=== PATIENT | female | born 1945 | race Caucasian/White ===

== ENCOUNTER → 2016-11-08 | Outpatient (CLI) | payer OTHER, MEDICARE ==
[~2016-11-08] MED LIST: APIX5TAB PO; DIGO125T6 PO; FURO-93 PO; GABA300C10 PO; GABA600T2 PO; HYDR-3240 PO; INSU100C5 SQ-INSULIN; INSU100V13 SQ; INSU500I SQ; INSU500I SQ-INSULIN; L.AC1CAP6 PO; LISI5TAB7 PO; LORA-446 PO; LORA0.5T PO; LORA1TAB PO; MELA3TAB62 PO; METH10TA6 PO; METO25TA35 PO; METO50TA82 PO; MOME17SP NAS; MONT10TA9 PO; OMEP-110 PO; POTA10TA11 PO; PROM25SU34 PO; PROM25TA10 PO; SIMV40TA3 PO; SOTA80TA18 PO; TRAM50TA2 PO; ZOLP10TA PO
== END | disposition home or self-care (01) ==
LOC: CFH 12:31
PROVIDERS: ATTEND Internal Medicine
DX: R06.02 Shortness of breath (principal)
CPT/HCPCS: 71250

== ENCOUNTER → 2017-02-22 | Outpatient (CLI) | payer OTHER, MEDICARE | LOC: CFH 11:14 | PROVIDERS: ATTEND Otolaryngology | DX: H90.3 Sensorineural hearing loss, bilateral (principal) | CPT/HCPCS: 70480 ==

== ENCOUNTER → 2020-06-28 | Outpatient (CLI) | payer MEDICARE ==
[~2020-06-28] MED LIST changes: -DIGO125T6 PO; +DIGO125T81 PO; -GABA600T2 PO; +GABA600T7 PO; +HYDR-2214 PO; -HYDR-3240 PO; +MONT10TA17 PO; -MONT10TA9 PO; +SIMV40TA20 PO; -SIMV40TA3 PO
== END | disposition home or self-care (01) ==
LOC: CVU 14:36
PROVIDERS: ATTEND Registered Nurse
DX: I08.1 Rheumatic disorders of both mitral and tricuspid valves (principal); I11.9 Hypertensive heart disease without heart failure; G47.33 Obstructive sleep apnea (adult) (pediatric); J45.30 Mild persistent asthma, uncomplicated; I48.91 Unspecified atrial fibrillation; E11.9 Type 2 diabetes mellitus without complications; Z87.891 Personal history of nicotine dependence; Z68.35 Body mass index [BMI] 35.0-35.9, adult; Z95.0 Presence of cardiac pacemaker
CPT/HCPCS: 93306

== ENCOUNTER → 2020-10-18 | Outpatient (CLI) | payer MEDICARE ==
[2020-10-18 12:56] LABS: ALANINE AMINOTRANSFERASE 57 U/L (12-78); ALBUMIN 3.7 g/dL (3.4-5.0); ANION GAP 7 mmol/L (5-15); CALCIUM 8.4 mg/dL (8.5-10.1); CHLORIDE 97 mmol/L (98-107)
[2020-10-18 13:04] LABS: ALKALINE PHOSPHATASE 104 U/L (45-117); BILIRUBIN,TOTAL 0.4 mg/dL (0.2-1.0); CHOL/HDL RATIO 4.1; CHOLESTEROL, TOTAL 141 mg/dL (140-239); CREATININE 0.91 mg/dL (0.55-1.02); FREE T4 (FREE THYROXINE) 1.18 ng/dL (0.76-1.46); HDL CHOL % 24 % (28-40); HDL CHOLESTEROL (DIRECT) 34 mg/dL (40-60); LDL CHOLESTEROL,CALCULATED 69 mg/dL (54-169); TOTAL PROTEIN 7.5 g/dL (6.4-8.2); TRIGLYCERIDES 189 mg/dL (50-200); VLDL CHOLESTEROL 38 mg/dL (0-25)
[2020-10-18 14:51] LABS: MICROSCOPIC AUTO
== END | disposition home or self-care (01) ==
LOC: LAB 12:14
PROVIDERS: ATTEND Physician Assistant Medical
DX: R30.0 Dysuria (principal); E11.8 Type 2 diabetes mellitus with unspecified complications
CPT/HCPCS: 36415; 80053; 80061; 81001; 82043; 82570; 83036; 84439; 84443

== ENCOUNTER 2020-11-05 06:11 | Day surgery (SDC) | payer MEDICARE ==
[~2020-11-05] VITALS: Ht 172.7 cm; Wt 99.3 kg
[2020-11-05 06:50] VITALS: BP 125/73
[2020-11-05] MEDS ORDERED: OXYMETAZOLINE NASAL SPRAY 0.05%,30ML ONE (06:57)
[2020-11-05] MEDS ORDERED: BACITRACIN OINT 500U/GM, 15 GM ONE (06:57)
[2020-11-05] MEDS ORDERED: LIDOCAINE/PF 1%-EPI 1:200K, 30 ML ONE (06:57)
[2020-11-05] MEDS ORDERED: CHLORHEXIDINE 15 ML UDC PO ONE (07:00)
[2020-11-05] MEDS ORDERED: LACTATED RINGERS 1,000 ML IV SCH (07:00)
[2020-11-05] MEDS ORDERED: PROPOFOL 10 MG/ML, 20ML ONE (07:40)
[2020-11-05] MEDS ORDERED: FENTANYL PF 250 MCG/5ML ONE (07:40)
[2020-11-05] MEDS ORDERED: ROCURONIUM 10MG/ML,5ML ONE (07:40)
[2020-11-05] MEDS ORDERED: SUCCINYLCHOLINE 20 MG/ML, 10ML ONE (07:40)
[2020-11-05 07:46] LABS: ALBUMIN 3.4 g/dL (3.4-5.0); ANION GAP 7 mmol/L (5-15); CALCIUM 9.1 mg/dL (8.5-10.1); CHLORIDE 104 mmol/L (98-107)
[2020-11-05 07:52] LABS: ALANINE AMINOTRANSFERASE 44 U/L (12-78); ALKALINE PHOSPHATASE 87 U/L (45-117); BILIRUBIN,TOTAL 0.4 mg/dL (0.2-1.0); CREATININE 1.19 mg/dL (0.55-1.02)
[2020-11-05] MEDS ORDERED: ONDANSETRON 2MG/ML, 2ML ONE (08:29)
[2020-11-05] MEDS ORDERED: FENTANYL PF 100 MCG/2ML ONE (08:53)
[2020-11-05] MEDS: FENTANYL PF 100 MCG/2ML IV PRN ×3 (08:55→09:33)
[2020-11-05] MEDS ORDERED: MIDAZOLAM 1 MG/ML, 2ML IV PRN (09:00)
[2020-11-05] MEDS ORDERED: DIPHENHYDRAMINE 50 MG/ML, 1ML IVPush PRN ×2 (09:00)
[2020-11-05] MEDS ORDERED: DIAZEPAM 5 MG/ML, 2ML IVPush PRN (09:00)
[2020-11-05] MEDS ORDERED: OXYcodone 5 MG/5 ML ORAL.SOL UDC PO PRN (09:00)
[2020-11-05] MEDS ORDERED: ONDANSETRON 2MG/ML, 2ML IVPush PRN (09:00)
[2020-11-05] MEDS ORDERED: EPHEDRINE 50 MG/ML, 1ML IVPush PRN (09:00)
[2020-11-05] MEDS ORDERED: LORazepam 2 MG/ML, 1ML IVPush PRN (09:00)
[2020-11-05] MEDS ORDERED: HYDROmorphone 1 MG/ML, 1ML INJ IVPush PRN (09:00)
[2020-11-05] MEDS ORDERED: LABETALOL 5MG/ML, 20ML IV PRN (09:00)
[2020-11-05] MEDS ORDERED: hydrALAzine 20 MG/ML, 1ML IV PRN (09:00)
[2020-11-05] MEDS ORDERED: PROMETHAZINE 25 MG/ML, 1ML IVPush PRN (09:00)
[2020-11-05] MEDS ORDERED: ALBUTEROL SULFATE 2.5 MG/3 ML NPPB PRN (09:00)
[2020-11-05] MEDS ORDERED: MEPERIDINE/PF 25MG/0.5ML IVPush PRN (09:00)
[2020-11-05] MEDS ORDERED: ACETAMINOPHEN 325 MG TABLET PO PRN (09:00)
[2020-11-05] MEDS ORDERED: PROMETHAZINE 12.5 MG SUPP PR PRN (09:00)
[2020-11-05] MEDS ORDERED: ACETAMINOPHEN 650 MG/20.3 ML UDC ONE (09:08)
[2020-11-05] MEDS ORDERED: OXYcodone 5 MG/5 ML ORAL.SOL UDC ONE (09:21)
== END 2020-11-05 10:55 | disposition home or self-care (01) ==
LOC: OUT 06:11
PROVIDERS: ATTEND Otolaryngology
DX: J34.2 Deviated nasal septum (principal); J34.3 Hypertrophy of nasal turbinates; I10 Essential (primary) hypertension; E78.5 Hyperlipidemia, unspecified; I48.91 Unspecified atrial fibrillation; E11.9 Type 2 diabetes mellitus without complications; G47.33 Obstructive sleep apnea (adult) (pediatric); J45.909 Unspecified asthma, uncomplicated; E66.9 Obesity, unspecified; Z79.899 Other long term (current) drug therapy; Z88.8 Allergy status to other drugs, medicaments and biological substances
CPT/HCPCS: 30140; 30520; 80053; 82962; 93005; J0330; J2405; J2704; J3010